=== PATIENT | male | born 1940 | race Two or more races ===

== ENCOUNTER 2025-03-07 16:23 | Inpatient (IN) | payer OTHER ==
[~2025-03-07] VITALS: Ht 170.2 cm; Wt 100.7 kg
[2025-03-07 16:58] LABS: Hematocrit 41.6 % (41.0-53.0); Hemoglobin 14.2 g/dL (13.5-17.5); Mean Corpuscular Hemoglobin 32.5 pg (28.0-32.0); Mean Corpuscular Volume 95.2 fL (80.0-100.0); Nucleated Red Blood Cells % 0.1 %
[2025-03-07 17:10] LABS: Chloride 102 mmol/L (98-107); Potassium 5.0 mmol/L (3.5-5.1); Sodium 138 mmol/L (136-145)
[2025-03-07 17:11] LABS: Anion Gap 8 (5-15); Carbon Dioxide 28 mmol/L (20-31)
[2025-03-07 17:12] LABS: Calcium 9.4 mg/dL (8.7-10.4)
[2025-03-07 17:17] LABS: BUN/Creatinine Ratio 13.2 (10.0-20.0)
--- NOTE | 2025-03-07 17:20 | DVH ---
CHEST RADIOGRAPH Indication: CHEST PAIN Technique: Single frontal view of the chest was obtained Comparison: None FINDINGS: Lines and Tubes: None Lungs: Linear atelectasis above the diaphragms bilaterally . Pleura: Suggestion of a small left pleural effusion. No pneumothorax. Cardiomediastinal contours: Unremarkable Bones: No acute osseous abnormality. IMPRESSION: 1. Bibasilar areas of linear atelectasis above the diaphragm. 2. Small left pleural effusion.
[2025-03-07 17:24] LABS: Blood Urea Nitrogen 25 mg/dL (9-23); Glucose 146 mg/dL (74-106)
[2025-03-07 17:37] LABS: Urine Protein, UAD Negative (Negative)
--- NOTE | 2025-03-07 17:48 | ED.PDOC ---
HPI Comments This is a 84 year old male with past medical history of hypertension, hyperlipidemia, diabetes BIBA presenting to the ED with chief complaint of chest pain. Patient reports that he has been experiencing left sided chest pain for the past 3 days, still feeling pain at this time. Patient relays that he visited [facility] urgent care and was advised to come into the ED due to having an elevated troponin. Patient states he was given some medication while there and his pain had improved, however is unsure what the name of it was. He has never had this previously. He has not tried anything for his symptoms at home. Patient denies any N/V, SOB, dizziness, headache, cough, fever, or chills. Chief Complaint: Chest Pain Time Seen by MD: 17:45 Reviewed Notes: Nurses Notes, Salesforce Developer Notes, Medications, Allergies Allergies: Coded Allergies: NO KNOWN ALLERGIES (Unverified , 03/07/25) Information Source: Patient, Emergency Med Personnel Mode of Arrival: EMS Severity: Moderate Timing: Days Duration: Since onset Prehospital treatment: None Location: Chest (L) Radiation: No Radiation Quality: Sharp Onset: At Rest Cardiac Risk Factors: HTN, Diabetes PE Risk Factors: None Past Medical History PAST MEDICAL HISTORY: DM, HTN, Thyroid Surgical History: Denies all surgeries Family History Family History: Reviewed,noncontributory to illness Social History Smoker: Non-Smoker Alcohol: Denies ETOH Use Drugs: Denies Drug Use Lives In: Home Constitutional: denies: chills, diaphoresis, fatigue, fever, malaise, sweats, weakness, others EENTM: denies: blurred vision, double vision, ear bleeding, ear discharge, ear drainage, ear pain, ear ringing, eye pain, eye redness, hearing loss, mouth pain, mouth swelling, nasal discharge, nose bleeding, nose congestion, nose pain, photophobia, tearing, throat pain, throat swelling, voice changes, others Respiratory: denies: cough, hemoptysis, orthopnea, SOB at rest, shortness of breath, SOB with excertion, stridor, wheezing, others Cardiovascular: reports: chest pain; denies: dizzy spells, diaphoresis, Dyspnea on exertion, edema, irregular heart beat, left arm pain, lightheadedness, palpitations, PND, syncope, others Gastrointestinal: denies: abdomen distended, abdominal pain, blood streaked bowels, constipated, diarrhea, dysphagia, difficulty swallowing, hematemesis, melena, nausea, poor appetite, poor fluid intake, rectal bleeding, rectal pain, vomiting, others Genitourinary: denies: burning, dysuria, flank pain, frequency, hematuria, incontinence, penile discharge, penile sore, pain, testicle pain, testicle swelling, urgency, others Neurological: denies: dizziness, fainting, headache, left sided numbness, left sided weakness, numbness, paresthesia, pre-existing deficit, right sided numbness, right sided weakness, seizure, speech problems, tingling, tremors, weakness, others Musculoskeletal: denies: back pain, gout, joint pain, joint swelling, muscle pain, muscle stiffness, neck pain, others Integumetry: denies: bruises, change in color, change in hair/nails, dryness, laceration, lesions, lumps, rash, wounds, others Allergic/Immunocompromised: denies: Difficulty Healing, Frequent Infections, Hives, Itching, others Hematologic/Lymphatic: denies: anemia, blood clots, easy bleeding, easy bruising, swollen glands, others Endocrine: denies: excessive hunger, excessive sweating, excessive thirst, excessive urination, flushing, intolerance to cold, intolerance to heat, unexplained weight gain, unexplained weight loss, others Psychiatric: denies: anxiety, bipolar disorder, depression, hopeless, panic disorder, schizophrenia, sleepless, suicidal, others All Other Systems: Reviewed and Negative Physical Exam General Appearance: No Apparent Distress, Normal HEENT: Normal ENT Inspection, Pharynx Normal, TMs Normal Neck: Full Range of Motion, Non-Tender, Normal, Normal Inspection Respiratory: Chest Non-Tender, Lungs Clear, No Accessory Muscle Use, No Respiratory Distress, Normal Breath Sounds Cardiovascular: No Edema, No JVD, No Murmur, No Gallop, Normal Peripheral Pulses, Regular Rate/Rhythm Breast Exam: Deferred Gastrointestinal: No Organomegaly, Non Tender, No Pulsatile Mass, Normal Bowel Sounds, Soft Genitalia: Deferred Pelvic: Deferred Rectal: Deferred Extremities: No calf tenderness, Normal capillary refill, Normal inspection, Normal range of motion, Non-tender, No pedal edema Musculoskeletal : Apperance: Normal Neurologic: Alert, international relations teacher II-XII nml as Tested, No Motor Deficits, Normal Affect, Normal Mood, No Sensory Deficits Cerebellar Function: Normal Reflexes: Normal Skin: Dry, Normal Color, Warm Lymphatic: No Adenopathy Was a procedure done? Was a procedure done?: No CP Differential Dx Differential Diagnosis: Angina, Anxiety / Panic Attack, Electrolyte Disorder, Heart Failure, Renal Failure, Sinus Tachycardia Differential Diagnosis: CHF, HTN Essential Differential Diagnosis: Angina, Chest Wall Pain, Costochondritis, Gastritis, Myocardial Infarction, Pericarditis, Pneumonia, Pneumothorax X-Ray, Labs, Meds, VS Vital Signs Date Time Temp Pulse Resp B/P (MAP) Pulse Ox O2 Delivery O2 Flow Rate FiO2 03/07/25 19:51 98.3 59 18 127/89 (102) 94 98.3 03/07/25 19:23 58 03/07/25 18:55 60 03/07/25 18:55 97.8 60 16 143/83 (103) 94 97.8 03/07/25 17:22 58 03/07/25 16:31 97.8 63 16 170/90 94 97.8 03/07/25 16:23 62 Lab Test 03/07/25 19:34 03/07/25 17:44 03/07/25 16:50 03/07/25 16:33 Range/Units Troponin I High Sensitivity Pending 45 44 </=54 ng/L Urine Color Light-yellow Yellow Urine Clarity Clear Clear Urine pH 5.0 5.0-9.0 Urine Specific [place] 1.015 1.001-1.035 Urine Protein Negative Negative Urine Ketones Negative Negative Urine Blood Negative Negative /uL Urine Nitrite Negative Negative Urine Bilirubin Negative Negative Urine Urobilinogen Normal Negative mg/dL Urine Leukocyte Esterase Negative Negative /uL Urine RBC <1 0 - 3 /hpf Urine Microscopic WBC < 1 0-3 /HPF Urine Squamous Epithelial Cells None seen <5 /hpf Urine Bacteria None seen None Seen /hpf Urine Glucose 4+ H Normal mg/dL White Blood Count 5.3 4.4-10.8 10^3/uL Red Blood Count 4.37 L 4.5-5.90 10^6/uL Hemoglobin 14.2 13.5-17.5 g/dL Hematocrit 41.6 41.0-53.0 % Mean Corpuscular Volume 95.2 80.0-100.0 fL Mean Corpuscular Hemoglobin 32.5 H 28.0-32.0 pg Mean Corpuscular Hemoglobin Concent 34.1 32.0-36.0 g/dL Red Cell Distribution Width 14.3 11.8-14.3 % Platelet Count 214 140-450 10^3/uL Mean Platelet Volume 7.7 6.9-10.8 fL Neutrophils (%) (Auto) 51.9 37.0-80.0 % Lymphocytes (%) (Auto) 37.2 10.0-50.0 % Monocytes (%) (Auto) 9.1 0.0-12.0 % Eosinophils (%) (Auto) 1.2 0.0-7.0 % Basophils (%) (Auto) 0.6 0.0-2.0 % Neutrophils # (Auto) 2.7 1.6-8.6 10 ^3/uL Lymphocytes # (Auto) 2.0 0.4-5.4 10 ^3/uL Monocytes # (Auto) 0.5 0-1.3 10 ^3/uL Eosinophils # (Auto) 0.1 0-0.8 10 ^3/uL Basophils # (Auto) 0 0-0.2 10 ^3/uL Nucleated Red Blood Cells 0.1 % Sodium Level 138 136-145 mmol/L Potassium Level 5.0 3.5-5.1 mmol/L Chloride Level 102 98-107 mmol/L Carbon Dioxide Level 28 20-31 mmol/L Anion Gap 8 5-15 Blood Urea Nitrogen 25 H 9-23 mg/dL Creatinine 1.89 H 0.700-1.30 mg/dL Glomerular Filtration Rate Calc 35 >90 mL/min BUN/Creatinine Ratio 13.2 10.0-20.0 Serum Glucose 146 H 74-106 mg/dL Calcium Level 9.4 8.7-10.4 mg/dL B-Type Natriuretic Peptide 42.13 0-100 pg/mL Lipase 40 12-53 U/L X-Ray, Labs, Meds, VS Comment Patient presenting with left-sided chest pain for the past 3 days and elevated troponin at urgent care. Vital signs stable and exam otherwise unremarkable. Patient is still endorsing active chest pain. Lab work (CBC, BMP) to evaluate for evidence of severe anemia, electrolyte abnormality including hypokalemia, hyperkalemia, hypernatremia, hyponatremia, hyperglycemia, hypoglycemia, etc. EKG and troponin to evaluate for evidence of arrhythmia, ACS, AMI Chest x-ray to evaluate for pneumonia, pneumothorax with volume overload We will give full-dose aspirin Re-evaluate Social determinant surveillance affecting care: Social determinants of health that will affect the patient's care: Poor health literacy (additional time provided an explanation) Poor access to outpatient care/followup (provided outpatient resources) Time of 1ST Reevaluation: 18:44 Reevaluation 1ST: Improved Patient Education/Counseling: Diagnosis, Treatment Family Education/Counseling: No Family Present SEPSIS Sepsis Screen Date sepsis recognized/suspect: Mar 07, 2025 Time Sepsis recognized/suspect: 1633 Recent Procedure: No On Antibiotic Therapy: No Respiratory Rate >20: No Heart Rate >90: No Temp<36 C (96.8 F) or >38.3 C: No SBP <90 or MAP <65 mmHG: No New Acute Mental Status Change: No Is the patient on CPAP, BIPAP,: No Physician Orders Troponin-I Hs (03/07/25 19:44) Chest Portable (03/07/25 16:44) Vital Signs Date Time Temp Pulse Resp B/P (MAP) Pulse Ox O2 Delivery O2 Flow Rate FiO2 03/07/25 19:51 98.3 59 18 127/89 (102) 94 98.3 03/07/25 19:23 58 03/07/25 18:55 60 03/07/25 18:55 97.8 60 16 143/83 (103) 94 97.8 03/07/25 17:22 58 03/07/25 16:31 97.8 63 16 170/90 94 97.8 03/07/25 16:23 62 Laboratory Tests Test 03/07/25 16:33 White Blood Count 5.3 10^3/uL (4.4-10.8) Departure 1 Departure Time of Disposition: 20:18 (On reassessment, patient found to have slightly up trending troponin. Patient with elevated heart score, so we will admit. Spoke to Dr. Trejo, from [facility], who will evaluate patient.) Impression: Primary Impression: Acute chest pain Disposition: ADMITTED INPATIENT Admit to: [facility] Condition: Guarded Critical Care Note Critical Care Time?: Yes Stability Stability form required: No Heart Score Heart Score: Heart Score Response (Comments) Value History Highly Suspicious 2 EKG Normal 0 Age >65 2 Risk Factors >3 or Hx ASHD 2 Troponin >3 x's Normal limit 2 Total 8 I personally scribed for OLIVIA MORTON MD ([email or web address]) on 03/07/25 at 17:48. Electronically submitted by Tye Wells ([email or web address]). OLIVIA MORTON MD Mar 07, 2025 17:48
--- NOTE | 2025-03-07 18:04 | ECG ---
[facility] Test Date: 2025-03-07 Test Time: 16:19:28 Pat Name: YURY BRAXTON Department: [facility] ED Patient ID: [facility]-[id number] Room: 0297T Gender: M Load Blocker: JUVENTINO : 1940 Requested By: OLIVIA MORTON Order Number: [id number] Reading MD: Christopher Ugarte Measurements Intervals [place] Rate: 62 P: 7 OK: 214 QRS: -139 QRSD: 152 T: -10 QT: 434 QTc: 441 Interpretive Statements Sinus rhythm Borderline prolonged [place] interval Right bundle branch block Electronically Signed On 03-11-2025 14:58:44 PST by Christopher Ugarte Please click the below link to view image of tracing.
--- NOTE | 2025-03-07 19:13 | ECG ---
[facility] Test Date: 2025-03-07 Test Time: 17:22:14 Pat Name: YURY BRAXTON Department: ED Room: 0297T Gender: M Reconstructive Surgeon: JUVENTINO : 1940 Requested By: OLIVIA MORTON Order Number: [id number] Reading MD: Christopher Ugarte Measurements Intervals [place] Rate: 58 P: 30 UT: 214 QRS: -112 QRSD: 145 T: 2 QT: 464 QTc: 456 Interpretive Statements Sinus rhythm Borderline prolonged [place] interval RBBB and LAFB Electronically Signed On 03-11-2025 14:58:51 PST by Christopher Ugarte Please click the below link to view image of tracing.
--- NOTE | 2025-03-07 19:27 | ECG ---
[facility] Test Date: 2025-03-07 Test Time: 19:23:38 Pat Name: YURY BRAXTON Department: ED Room: 0297T Gender: M Restaurant Culinary Manager: TACO : 1940 Requested By: OLIVIA MORTON Order Number: [id number] Reading MD: Christopher Ugarte Measurements Intervals [place] Rate: 58 P: 71 [place]: 220 QRS: -135 QRSD: 151 T: 7 QT: 463 QTc: 455 Interpretive Statements Sinus rhythm Borderline prolonged [place] interval Right bundle branch block Baseline wander in lead(s) I,III,aVL Electronically Signed On 03-11-2025 14:59:00 PST by Christopher Ugarte Please click the below link to view image of tracing.
[2025-03-07] MEDS ORDERED: DEXTROSE (50%) 50ML SYRG IV PRN (21:45)
[2025-03-07] MEDS ORDERED: MORPHINE SULFATE INJ 2 MG/ml SYRG IV PRN (21:45)
[2025-03-07] MEDS ORDERED: NITROGLYCERIN 0.4 MG SL TAB SL PRN ×2 (21:45)
[2025-03-07] MEDS: ACCU-CHEK COMFORT CURVE STRIP VI SCH (22:00)
[2025-03-07] MEDS: SOD CHL 0.45% 1,000 ML IV ONE (22:20)
[2025-03-07] MEDS: InsuLIN REG 1unit/0.01ml Soln (100units/ml) SC SCH (22:28)
[2025-03-07 23:50] VITALS: PULSE 58
[2025-03-08] VITALS (7 sets, daily range): BP systolic 129–147; BP diastolic 65–86; PULSE 56–64; RESP 16–18; TEMP 97–97.7; O2SAT 93–98
[2025-03-08] MEDS ORDERED: AMIO200T13 PO (00:14)
[2025-03-08] MEDS ORDERED: DOXA4TAB83 PO (00:14)
[2025-03-08] MEDS ORDERED: APIX5TAB PO (00:14)
[2025-03-08] MEDS ORDERED: LEVO25TA6 PO (00:14)
[2025-03-08] MEDS ORDERED: SUCR1TAB PO (00:14)
[2025-03-08] MEDS ORDERED: PANT40T PO (00:14)
[2025-03-08] MEDS ORDERED: LOVA20TA4 PO (00:14)
[2025-03-08] MEDS ORDERED: ACYC1TAB3 PO (00:19)
[2025-03-08] MEDS ORDERED: GAB100C PO (00:19)
[2025-03-08 06:46] LABS: Hematocrit 42.5 % (41.0-53.0); Hemoglobin 14.6 g/dL (13.5-17.5); Mean Corpuscular Hemoglobin 32.7 pg (28.0-32.0); Mean Corpuscular Volume 95.1 fL (80.0-100.0); Nucleated Red Blood Cells % 0.1 %
[2025-03-08 06:59] LABS: INR 1.03 (0.9-1.15); Prothrombin Time 10.9 sec (9.3-11.8)
[2025-03-08 07:05] LABS: Alkaline Phosphatase 68 U/L (46-116); Anion Gap 11 (5-15); BUN/Creatinine Ratio 15.3 (10.0-20.0); Blood Urea Nitrogen 22 mg/dL (9-23); Calcium 8.9 mg/dL (8.7-10.4); Carbon Dioxide 27 mmol/L (20-31); Chloride 102 mmol/L (98-107); Potassium 3.8 mmol/L (3.5-5.1); Sodium 140 mmol/L (136-145); Total Protein 6.9 g/dL (5.7-8.2)
[2025-03-08 07:06] LABS: Alanine Aminotransferase 48 U/L (7-40); Albumin 4.0 g/dL (3.2-4.8); Bilirubin, Total 0.7 mg/dL (0.2-1.0); Glucose 115 mg/dL (74-106)
--- NOTE | 2025-03-08 17:16 | DVHDS2 ---
Discharge Summary Date of Admission Mar 07, 2025 at 21:39 Date of Discharge: Mar 08, 2025 Labs/Diagnostic Data: Laboratory Results Test 03/08/25 06:18 03/08/25 06:06 03/07/25 19:34 03/07/25 16:50 POC Glucose 121 mg/dl (70-106) White Blood Count 4.7 10^3/uL (4.4-10.8) Red Blood Count 4.47 10^6/uL (4.5-5.90) Hemoglobin 14.6 g/dL (13.5-17.5) Hematocrit 42.5 % (41.0-53.0) Mean Corpuscular Volume 95.1 fL (80.0-100.0) Mean Corpuscular Hemoglobin 32.7 pg (28.0-32.0) Mean Corpuscular Hemoglobin Concent 34.4 g/dL (32.0-36.0) Red Cell Distribution Width 14.4 % (11.8-14.3) Platelet Count 214 10^3/uL (140-450) Mean Platelet Volume 7.8 fL (6.9-10.8) Neutrophils (%) (Auto) 53.6 % (37.0-80.0) Lymphocytes (%) (Auto) 34.0 % (10.0-50.0) Monocytes (%) (Auto) 10.2 % (0.0-12.0) Eosinophils (%) (Auto) 1.7 % (0.0-7.0) Basophils (%) (Auto) 0.5 % (0.0-2.0) Neutrophils # (Auto) 2.5 10 ^3/uL (1.6-8.6) Lymphocytes # (Auto) 1.6 10 ^3/uL (0.4-5.4) Monocytes # (Auto) 0.5 10 ^3/uL (0-1.3) Eosinophils # (Auto) 0.1 10 ^3/uL (0-0.8) Basophils # (Auto) 0 10 ^3/uL (0-0.2) Nucleated Red Blood Cells 0.1 % Prothrombin Time 10.9 sec (9.3-11.8) Prothrombin Time INR 1.03 (0.9-1.15) Sodium Level 140 mmol/L (136-145) Potassium Level 3.8 mmol/L (3.5-5.1) Chloride Level 102 mmol/L (98-107) Carbon Dioxide Level 27 mmol/L (20-31) Anion Gap 11 (5-15) Blood Urea Nitrogen 22 mg/dL (9-23) Creatinine 1.44 mg/dL (0.700-1.30) Glomerular Filtration Rate Calc 48 mL/min (>90) BUN/Creatinine Ratio 15.3 (10.0-20.0) Serum Glucose 115 mg/dL (74-106) Calcium Level 8.9 mg/dL (8.7-10.4) Total Bilirubin 0.7 mg/dL (0.2-1.0) Aspartate Amino Transferase (AST) 46 U/L (13-40) Alanine Aminotransferase (ALT) 48 U/L (7-40) Alkaline Phosphatase 68 U/L (46-116) Total Protein 6.9 g/dL (5.7-8.2) Albumin 4.0 g/dL (3.2-4.8) Troponin I High Sensitivity 47 ng/L (</=54) Urine Color Light-yellow (Yellow) Urine Clarity Clear (Clear) Urine pH 5.0 (5.0-9.0) Urine Specific [place] 1.015 (1.001-1.035) Urine Protein Negative (Negative) Urine Ketones Negative (Negative) Urine Blood Negative /uL (Negative) Urine Nitrite Negative (Negative) Urine Bilirubin Negative (Negative) Urine Urobilinogen Normal mg/dL (Negative) Urine Leukocyte Esterase Negative /uL (Negative) Urine RBC <1 /hpf (0 - 3) Urine Microscopic WBC < 1 /HPF (0-3) Urine Squamous Epithelial Cells None seen /hpf (<5) Urine Bacteria None seen /hpf (None Seen) Urine Glucose 4+ mg/dL (Normal) Test 03/07/25 16:33 B-Type Natriuretic Peptide 42.13 pg/mL (0-100) Lipase 40 U/L (12-53) Other Laboratory Tests 03/08/25 06:06 Brief Hx & Hospital Course: Patient is a 84-year-old male with past medical history of hypertension, hyperlipidemia, type 2 diabetes who was brought in by [facility] urgent care due to complaints of chest pain. Patient has been receiving treatment for shingles which he is currently on his second week course. He notes that the chest pain felt different than his shingles. On arrival here, his troponin was not elevated at 44>45>47. Patient did not have recurrence of his chest pain. Cardiology was consulted. He was also cleared for discharge by cardiology. He is to have an outpatient follow-up with cardiology. No new medications were prescribed on discharge. Patient to continue with his treatment for shingles. Patient discharged in stable condition. Condition at Discharge: Good Final Diagnosis/Problems List Chest pain from shingles Secondary Diagnosis: Type 2 DM Atrial Fibrillation on Amioadarone and Eliquis Shingles Discharge Disposition: Home Discharge Instruct/Medications Diet: Cardiac 2g Na,low cholest Activity: No Restrictions, As Tolerated Follow Up/Referral: Follow up with cardiology. Medications: No new medications. Scheduled Acyclovir (Acyclovir), 1 TAB PO BID, (Reported) Amiodarone HCl (Amiodarone HCl), 1 TAB PO DAILY, (Reported) Apixaban Base (Eliquis), 1 TAB PO BID, (Reported) Doxazosin Mesylate (Doxazosin Mesylate), 1 TAB PO DAILY, (Reported) Gabapentin (Gabapentin), 1 CAP PO TID, (Reported) Levothyroxine Sodium (Levothyroxine Sodium), 1 TAB PO DAILY, (Reported) Lovastatin (Lovastatin), 1 TAB PO DAILY, (Reported) Pantoprazole Sodium Sesquihydr (Pantoprazole Sodium), 1 TAB PO BID, (Reported) Sucralfate (Sucralfate), 1 TAB PO BID, (Reported) Discharge Statement: "Patient was advised to return to the ER or call 911 if any headaches, dizziness, shortness of breath, chest pain, abdominal pain, bleeding, fevers, or worsening of medical condition. Patient was counseled about treatment plan, medications, possible side effects, patientverbalized understanding. All questions were answered to the best of my ability. This discharge took greater then 30 minutes in planning, reviewing documentation, counseling the patient, and discussing with other team members." ASSESSMENT ASSESSMENT Assessment Chest pain from shingles PAULINE FERRER Mar 08, 2025 17:16
--- NOTE | 2025-03-08 18:28 | DVHINCON2 ---
Date of service: Mar 08, 2025 Referring Physician Neil Reason for Consultation Persistent chest pain History of Present Illness This is an 84 year old male with a PMH of = hypertension, hyperlipidemia, diabetes who was brought in by ambulance with a complaint of chest pain. Patient reports that he has been experiencing left sided chest pain for the past 3 days. Patient relays that he visited [facility] urgent care and was advised to come into the ED due to having an elevated troponin. Patient states he was given some medication while there and his pain had improved, however is unsure what the name of it was. He has never had this previously. He has not tried anything for his symptoms at home. [id number] > 45 > 47. Chest x-ray shows bibasilar areas of linear atelectasis above the diaphragm, small left pleural effusion. Patient was admitted to the hospital. I am asked to consult on this patient. Family History: FH: cancer Allergies: Coded Allergies: NO KNOWN ALLERGIES (Unverified , 03/07/25) Home Meds Reported Medications Gabapentin (Gabapentin) 100 Mg Cap, 1 CAP PO TID 03/08/25 Acyclovir (Acyclovir) 800 Mg Tab, 1 TAB PO BID 03/08/25 Amiodarone HCl (Amiodarone HCl) 200 Mg Tab, 1 TAB PO DAILY 03/08/25 Apixaban Base (ELIQUIS) 5 Mg Tab, 1 TAB PO BID 03/08/25 Doxazosin Mesylate (Doxazosin Mesylate) 4 Mg Tab, 1 TAB PO DAILY 03/08/25 Pantoprazole Sodium Sesquihydr (Pantoprazole Sodium) 40 Mg Tab, 1 TAB PO BID 03/08/25 Lovastatin (Lovastatin) 20 Mg Tab, 1 TAB PO DAILY 03/08/25 Sucralfate (Sucralfate) 1 Gm Tab, 1 TAB PO BID 03/08/25 Levothyroxine Sodium (Levothyroxine Sodium) 25 Mcg Tab, 1 TAB PO DAILY 03/08/25 Current Medications Current Medications Medications (Trade) Dose Ordered Sig/Pattie Route PRN Reason Start Time Stop Time Status Last Admin Nitroglycerin (Ntrostat Sublingual) 0.4 mg Q5MINP PRN SL FOR CHEST PAIN 03/07/25 21:45 Morphine Sulfate 2 mg Q30M PRN IV FOR CHEST PAIN 03/07/25 21:45 Aspirin 325 mg DAILY PO 03/08/25 10:00 03/08/25 11:03 Nitroglycerin (Ntrostat Sublingual) 0.4 mg DAILY PRN SL FOR CHEST PAIN 03/07/25 21:45 Cancel Diagnostic Test (Pha) (Accu-Chek Comfort Curve T) 1 strip ACHS 03/07/25 22:00 03/08/25 06:16 Insulin Human Regular (InsuLIN R) ACHS SC 03/07/25 22:00 03/07/25 22:28 Dextrose 50 ml UD PRN IV Blood Sugar LESS THAN 60 03/07/25 21:45 Review of Systems Constitutional: denies: chills, diaphoresis, fatigue, fever, malaise, sweats, weakness, others EENTM: denies: blurred vision, double vision, ear bleeding, ear discharge, ear drainage, ear pain, ear ringing, eye pain, eye redness, hearing loss, mouth pain, mouth swelling, nasal discharge, nose bleeding, nose congestion, nose pain, photophobia, tearing, throat pain, throat swelling, voice changes, others Respiratory: denies: cough, hemoptysis, orthopnea, SOB at rest, shortness of breath, SOB with excertion, stridor, wheezing, others Cardiovascular: reports: chest pain; denies: dizzy spells, diaphoresis, Dyspnea on exertion, edema, irregular heart beat, left arm pain, lightheadedness, palpitations, PND, syncope, others Gastrointestinal: denies: abdomen distended, abdominal pain, blood streaked bowels, constipated, diarrhea, dysphagia, difficulty swallowing, hematemesis, melena, nausea, poor appetite, poor fluid intake, rectal bleeding, rectal pain, vomiting, others Genitourinary: denies: burning, dysuria, flank pain, frequency, hematuria, incontinence, penile discharge, penile sore, pain, testicle pain, testicle swelling, urgency, others Neurological: denies: dizziness, fainting, headache, left sided numbness, left sided weakness, numbness, paresthesia, pre-existing deficit, right sided numbness, right sided weakness, seizure, speech problems, tingling, tremors, weakness, others Musculoskeletal: denies: back pain, gout, joint pain, joint swelling, muscle pain, muscle stiffness, neck pain, others Integumetry: denies: bruises, change in color, change in hair/nails, dryness, laceration, lesions, lumps, rash, wounds, others Allergic/Immunocompromised: denies: Difficulty Healing, Frequent Infections, Hives, Itching, others Hematologic/Lymphatic: denies: anemia, blood clots, easy bleeding, easy bruising, swollen glands, others Endocrine: denies: excessive hunger, excessive sweating, excessive thirst, excessive urination, flushing, intolerance to cold, intolerance to heat, un explained weight gain, unexplained weight loss, others Psychiatric: denies: anxiety, bipolar disorder, depression, hopeless, panic disorder, schizophrenia, sleepless, suicidal, others All Other Systems: Reviewed and Negative Vital Signs Vital Signs Date Time Temp Pulse Resp B/P (MAP) Pulse Ox O2 Delivery O2 Flow Rate FiO2 03/08/25 08:50 97.2 58 18 142/86 (104) 93 97.2 03/08/25 08:00 Room Air* 0 93 21 Physical Exam GENERAL: Alert and oriented x 3. No acute distress. EYES: PERRL, EOMI. Anicteric. HENT: Moist mucous membranes. LUNGS: Clear to auscultation bilaterally. CARDIOVASCULAR: Regular rate and rhythm. ABDOMEN: Soft, nontender and nondistended. EXTREMITIES: No edema. NEUROLOGIC: No focal neurological deficits. SKIN: Warm, dry. Labs/Diagnostic Data Labs Test 03/08/25 06:18 03/08/25 06:06 03/07/25 19:34 03/07/25 16:50 Range/Units POC Glucose 121 H 70-106 mg/dl White Blood Count 4.7 4.4-10.8 10^3/uL Red Blood Count 4.47 L 4.5-5.90 10^6/uL Hemoglobin 14.6 13.5-17.5 g/dL Hematocrit 42.5 41.0-53.0 % Mean Corpuscular Volume 95.1 80.0-100.0 fL Mean Corpuscular Hemoglobin 32.7 H 28.0-32.0 pg Mean Corpuscular Hemoglobin Concent 34.4 32.0-36.0 g/dL Red Cell Distribution Width 14.4 H 11.8-14.3 % Platelet Count 214 140-450 10^3/uL Mean Platelet Volume 7.8 6.9-10.8 fL Neutrophils (%) (Auto) 53.6 37.0-80.0 % Lymphocytes (%) (Auto) 34.0 10.0-50.0 % Monocytes (%) (Auto) 10.2 0.0-12.0 % Eosinophils (%) (Auto) 1.7 0.0-7.0 % Basophils (%) (Auto) 0.5 0.0-2.0 % Neutrophils # (Auto) 2.5 1.6-8.6 10 ^3/uL Lymphocytes # (Auto) 1.6 0.4-5.4 10 ^3/uL Monocytes # (Auto) 0.5 0-1.3 10 ^3/uL Eosinophils # (Auto) 0.1 0-0.8 10 ^3/uL Basophils # (Auto) 0 0-0.2 10 ^3/uL Nucleated Red Blood Cells 0.1 % Prothrombin Time 10.9 9.3-11.8 sec Prothrombin Time INR 1.03 0.9-1.15 Sodium Level 140 136-145 mmol/L Potassium Level 3.8 3.5-5.1 mmol/L Chloride Level 102 98-107 mmol/L Carbon Dioxide Level 27 20-31 mmol/L Anion Gap 11 5-15 Blood Urea Nitrogen 22 9-23 mg/dL Creatinine 1.44 H 0.700-1.30 mg/dL Glomerular Filtration Rate Calc 48 >90 mL/min BUN/Creatinine Ratio 15.3 10.0-20.0 Serum Glucose 115 H 74-106 mg/dL Calcium Level 8.9 8.7-10.4 mg/dL Total Bilirubin 0.7 0.2-1.0 mg/dL Aspartate Amino Transferase (AST) 46 H 13-40 U/L Alanine Aminotransferase (ALT) 48 H 7-40 U/L Alkaline Phosphatase 68 46-116 U/L Total Protein 6.9 5.7-8.2 g/dL Albumin 4.0 3.2-4.8 g/dL Troponin I High Sensitivity 47 </=54 ng/L Urine Color Light-yellow Yellow Urine Clarity Clear Clear Urine pH 5.0 5.0-9.0 Urine Specific [place] 1.015 1.001-1.035 Urine Protein Negative Negative Urine Ketones Negative Negative Urine Blood Negative Negative /uL Urine Nitrite Negative Negative Urine Bilirubin Negative Negative Urine Urobilinogen Normal Negative mg/dL Urine Leukocyte Esterase Negative Negative /uL Urine RBC <1 0 - 3 /hpf Urine Microscopic WBC < 1 0-3 /HPF Urine Squamous Epithelial Cells None seen <5 /hpf Urine Bacteria None seen None Seen /hpf Urine Glucose 4+ H Normal mg/dL Test 03/07/25 16:33 Range/Units B-Type Natriuretic Peptide 42.13 0-100 pg/mL Lipase 40 12-53 U/L Assessment Chest pain. DM. HTN. Plan/Recommendation I agree with your ongoing assessment and care of plan. Echocardiogram. Aspirin. Morphine for pain management. Nitro SL. Patient is cardiac clear for discharge. Additional plan as per the hospital course. A total of 45 minutes was spent reviewing the patient record, examining the patient, making a diagnostic and therapeutic plan, discussing this plan with medical personnel, following up on diagnostic studies and following the patient for clinical stability excluding any and all procedures. At least 50% of this time was spent in direct, [id number] contact. Plan discussed with: Patient ALEXANDRE BENNETT MD Mar 08, 2025 12:02
--- NOTE | 2025-03-08 21:36 | DVHHP2 ---
Admitting Diagnosis: chest pain, r/o ACS History of Present Illness HPI 84 y.o. male with hypertension and diabetes was brought to the ER c/o precordial chest pain rated 8/10 for the past 2 days. The patient stated that he went to [facility] where they told him that his troponin was elevated and advise him to go to the ER. EMT gave her Aspirin but his pain did not resolve. In the ER his troponin levels was normal on 3 draws but showed a slight upward trend. The patient still c/o chest pain, now rated 6/10 Home Meds Reported Medications Gabapentin (Gabapentin) 100 Mg Cap, 1 CAP PO TID 03/08/25 Acyclovir (Acyclovir) 800 Mg Tab, 1 TAB PO BID 03/08/25 Amiodarone HCl (Amiodarone HCl) 200 Mg Tab, 1 TAB PO DAILY 03/08/25 Apixaban Base (ELIQUIS) 5 Mg Tab, 1 TAB PO BID 03/08/25 Doxazosin Mesylate (Doxazosin Mesylate) 4 Mg Tab, 1 TAB PO DAILY 03/08/25 Pantoprazole Sodium Sesquihydr (Pantoprazole Sodium) 40 Mg Tab, 1 TAB PO BID 03/08/25 Lovastatin (Lovastatin) 20 Mg Tab, 1 TAB PO DAILY 03/08/25 Sucralfate (Sucralfate) 1 Gm Tab, 1 TAB PO BID 03/08/25 Levothyroxine Sodium (Levothyroxine Sodium) 25 Mcg Tab, 1 TAB PO DAILY 03/08/25 Past Medical History Cardiac: HTN Endocrine: NIDDM Patient Family History: FH: cancer H&P Exam Vital Signs Vital Signs Date Time Temp Pulse Resp B/P (MAP) Pulse Ox O2 Delivery O2 Flow Rate FiO2 03/08/25 18:36 97.7 58 18 94 03/08/25 16:50 139/86 (103) 03/08/25 08:00 Room Air* 0 93 21 General Appeara: Obese Head Exam: Normal inspection Neck Exam: Non-tender Eye Exam: bilateral eye PERRL, bilateral eye EOMI Pulmonary/Respiratory: Lungs clear Cardiovascular/Chest: Regular rate Abdominal Exam: Soft Neuro/Mental St: Alert, Oriented SEPSIS Sepsis Screen Date sepsis recognized/suspect: Mar 07, 2025 Time Sepsis recognized/suspect: 1633 Recent Procedure: No On Antibiotic Therapy: No Respiratory Rate >20: No Heart Rate >90: No Temp<36 C (96.8 F) or >38.3 C: No SBP <90 or MAP <65 mmHG: No New Acute Mental Status Change: No Is the patient on CPAP, BIPAP,: No Physician Orders Discharge (03/08/25 17:15) Vital Signs Date Time Temp Pulse Resp B/P (MAP) Pulse Ox O2 Delivery O2 Flow Rate FiO2 03/08/25 18:36 97.7 58 18 94 03/08/25 16:50 97.7 58 18 139/86 (103) 93 97.7 Medications Medications Dose Ordered Sig/Pattie Route Start Time Stop Time Status Last Admin Dose Admin Aspirin 325 mg DAILY PO 03/08/25 10:00 03/08/25 11:03 325 MG Labs/Xrays Labs Test 03/08/25 17:33 03/08/25 06:06 03/07/25 19:34 03/07/25 16:50 Range/Units POC Glucose 128 H 70-106 mg/dl White Blood Count 4.7 4.4-10.8 10^3/uL Red Blood Count 4.47 L 4.5-5.90 10^6/uL Hemoglobin 14.6 13.5-17.5 g/dL Hematocrit 42.5 41.0-53.0 % Mean Corpuscular Volume 95.1 80.0-100.0 fL Mean Corpuscular Hemoglobin 32.7 H 28.0-32.0 pg Mean Corpuscular Hemoglobin Concent 34.4 32.0-36.0 g/dL Red Cell Distribution Width 14.4 H 11.8-14.3 % Platelet Count 214 140-450 10^3/uL Mean Platelet Volume 7.8 6.9-10.8 fL Neutrophils (%) (Auto) 53.6 37.0-80.0 % Lymphocytes (%) (Auto) 34.0 10.0-50.0 % Monocytes (%) (Auto) 10.2 0.0-12.0 % Eosinophils (%) (Auto) 1.7 0.0-7.0 % Basophils (%) (Auto) 0.5 0.0-2.0 % Neutrophils # (Auto) 2.5 1.6-8.6 10 ^3/uL Lymphocytes # (Auto) 1.6 0.4-5.4 10 ^3/uL Monocytes # (Auto) 0.5 0-1.3 10 ^3/uL Eosinophils # (Auto) 0.1 0-0.8 10 ^3/uL Basophils # (Auto) 0 0-0.2 10 ^3/uL Nucleated Red Blood Cells 0.1 % Prothrombin Time 10.9 9.3-11.8 sec Prothrombin Time INR 1.03 0.9-1.15 Sodium Level 140 136-145 mmol/L Potassium Level 3.8 3.5-5.1 mmol/L Chloride Level 102 98-107 mmol/L Carbon Dioxide Level 27 20-31 mmol/L Anion Gap 11 5-15 Blood Urea Nitrogen 22 9-23 mg/dL Creatinine 1.44 H 0.700-1.30 mg/dL Glomerular Filtration Rate Calc 48 >90 mL/min BUN/Creatinine Ratio 15.3 10.0-20.0 Serum Glucose 115 H 74-106 mg/dL Calcium Level 8.9 8.7-10.4 mg/dL Total Bilirubin 0.7 0.2-1.0 mg/dL Aspartate Amino Transferase (AST) 46 H 13-40 U/L Alanine Aminotransferase (ALT) 48 H 7-40 U/L Alkaline Phosphatase 68 46-116 U/L Total Protein 6.9 5.7-8.2 g/dL Albumin 4.0 3.2-4.8 g/dL Troponin I High Sensitivity 47 </=54 ng/L Urine Color Light-yellow Yellow Urine Clarity Clear Clear Urine pH 5.0 5.0-9.0 Urine Specific [place] 1.015 1.001-1.035 Urine Protein Negative Negative Urine Ketones Negative Negative Urine Blood Negative Negative /uL Urine Nitrite Negative Negative Urine Bilirubin Negative Negative Urine Urobilinogen Normal Negative mg/dL Urine Leukocyte Esterase Negative Negative /uL Urine RBC <1 0 - 3 /hpf Urine Microscopic WBC < 1 0-3 /HPF Urine Squamous Epithelial Cells None seen <5 /hpf Urine Bacteria None seen None Seen /hpf Urine Glucose 4+ H Normal mg/dL Test 03/07/25 16:33 Range/Units B-Type Natriuretic Peptide 42.13 0-100 pg/mL Lipase 40 12-53 U/L Assessment/Plan Problem List: (1) Acute chest pain Plan ECHO, cardiology consult, ASA, NTG, IVF Plan discussed with: Patient SHARON VILLAGRAN MD Mar 08, 2025 21:36
--- NOTE | 2025-03-09 09:36 | DVHSR ---
APPROVED REPORT EXAM: Two-dimensional and M-mode echocardiogram with Doppler and color Doppler. Blood Pressure: 129/69 mmHg INDICATION Chest Pain RISK FACTORS Height: 67, Weight: 222 DIMENSIONS LVDd 4.4 (3.8-5.7cm) LA (2D) 3.7 (1.9-4.0cm) Aortic Root 3.7 (2.0-3.7cm) LVDs 2.9 (2.5-4.0cm) LA (MM) (1.9-4.0cm) Aortic Cusp Exc 1.0 (1.5-2.0cm) EF (%) 55.0 (55-70%) Rt. Atrium 3.2 (1.9-4.0cm) Asc. Aorta 3.5 cm IVSd 0.8 (0.7-1.1cm) RV (D) (1.8-2.4cm) PWd 0.9 (0.7-1.1cm) Mitral Valve Mitral Mitral Stenosis E wave 0.53m/s MV Mean GR. mmHg A wave 0.78m/s MV Peak GR. 92mmHg E/A ratio 0.7 2D MVA cm2 DECEL Time 284ms PRESS 1/2 Time ms Aortic Valve Aortic Valve Aortic Stenosis V1 0.69m/s AO Mean GR. 5mmHg V2 1.54m/s AO Peak GR. 9mmHg LVOT Diameter 2.5 (1.8-2.4cm) Doppler FABRIZIO 2.20cm2 Pulmonic Valve V2 1.08m/s Other Information Technically limited study due to body habitus. Conclusion lvef 55% by visual estimate mild LVH normal rv function normal atria no severe valve abnormalities noted mild aortic regurg
== END 2025-03-08 19:35 | disposition home or self-care (01) | DRG 865 ==
LOC: EDBD 16:23 → ER 16:23 → OVERFLOW 21:39 → TELE-WESTW 23:59
PROVIDERS: ADMIT Internal Medicine; ATTEND Internal Medicine
DX: B02.8 Zoster with other complications (principal); N17.0 Acute kidney failure with tubular necrosis; Z79.01 Long term (current) use of anticoagulants; E11.9 Type 2 diabetes mellitus without complications; I10 Essential (primary) hypertension; J98.11 Atelectasis; E78.5 Hyperlipidemia, unspecified; I48.91 Unspecified atrial fibrillation; Z79.899 Other long term (current) drug therapy; Z79.84 Long term (current) use of oral hypoglycemic drugs
CPT/HCPCS: 36415; 71045; 80048; 80053; 81001; 82962; 83690; 83880; 84484; 85025; 85610; 93005; 93306; G0378; J1815